=== PATIENT | female | born 1985 | race Caucasian/White ===

== ENCOUNTER 2017-10-03 21:45 | Emergency (ER) | payer OTHER ==
[2017-10-03 22:32] VITALS: BMI 31.3
[2017-10-03] MEDS ORDERED: Lactated Ringer's 1,000 ML IV SCH (23:00)
[2017-10-03 23:36] LABS: BASO % 0.2 % (0.0-2.0); EOS # 0.1 K/uL (0.0-0.7); HEMOGLOBIN 11.4 g/dL (12.0-16.0); LYMPH # 2.3 K/uL (1.0-4.3); LYMPH % 18.5 % (20.0-40.0); MEAN CELL VOLUME 88.2 fl (81.0-99.0); MEAN CORPUSCULAR HEMOGLOBIN 30.1 pg (27.0-31.0); MEAN CORPUSCULAR HGB CONC 34.1 g/dL (33.0-37.0); MONO # 0.7 K/uL (0.0-0.8); MONO % 5.7 % (0.0-10.0); NEUT # 9.2 K/uL (1.8-7.0); NEUT % 74.6 % (50.0-75.0); RBC 3.8 Mil/uL (3.80-5.20); WHITE BLOOD COUNT 12.4 K/uL (4.8-10.8)
[2017-10-04 00:20] LABS: SQUAMOUS EPITHIAL < 1 /hpf (0-5); URINE BILIRUBIN NEGATIVE (NEGATIVE); URINE BLOOD NEGATIVE (NEGATIVE); URINE CLARITY CLEAR (Clear); URINE COLOR STRAW (YELLOW); URINE GLUCOSE (UA) NEG (Normal); URINE LEUKOCYTE ESTERASE NEG Leu/uL (Negative); URINE PROTEIN NEGATIVE (NEGATIVE); URINE UROBILINOGEN 0.2-1.0 mg/dL (0.2-1.0)
--- NOTE | 2017-10-04 00:26 | OBHP ---
Datetime: 10/03/2017 23:18 IP Adm Impression: , intrauterine IP Admit Plan: Observation/Evaluation; Discharge home Admit Comment, IP Provider: Patient is a @ 31.5 wks with CHTN on Labetalol, presents with va ginal spotting on/off for past week and progressed tonight with clots. Otherwise no other antepartum issues, no medical problems, no surgeries, only medication takes is Labetalol. No fever, no abdominal pain, no dysuria, +FM, VE=closed, scant blood tinged mucous when valsalva, no pooling [id number] mod ren, +accels, no decels TOCO = lilian q 4-5 mins A/P 1. Patient found to have scant mucous discharge on vaginal exam, otherwise no active vaginal bleed ing. Started IVF, CBC showed hgb = 11 and WBC = 12. No evidence of chorio. not dilated, no evidence o f labor. 2. Bedside BPP = 8/8, MARY = 13 with cervix presenting about 4cm and no fluid noted collecting in t he cervix, placenta did not show any abnormalities, anterior presentation 3. Patient after observation did not show any additional bleeding. Patient had 1 L bolus of fluid, gave PO Labetalol, BP stable 130s/70s. No BLEDSOE, blurred vision, no RUQ pain. 4. Patient stable for discharge, will see pt 10/05 office Pelvic Type - PN: Adequate Extremities - PN: Normal Abdomen - PN: Normal Back - PN: Normal Breast - PN: Normal Lungs - PN: Normal Heart - PN: Normal Thyroid - PN: Normal Neurologic - PN: Normal HEENT - PN: Normal General - PN: Normal FHR - Baseline A Provider: 125 Contraction Comments Provider: q 4 mins EGA AdmitDate IP: 31.4 Vital Signs Provider: Reviewed; Within Normal Limits IP Chief Complaint: Vaginal bleeding NICHD Variability Prov Fetus A: Moderate 6-25bpm NICHD Accel Fetus A IP Provider: 15X15 NICHD Decel Fetus A IP Provider: None Dilatation, Provider: closed Effacement, Provider: thick Station, Provider: -3 Genitourinary Exam: Normal DTRs - PN: Normal
--- NOTE | 2017-10-04 00:28 | OBDCSUM ---
Datetime: 10/04/2017 00:25 Discharged to, Provider: Home Follow up at, Provider: Dr. lee Discharge Diagnosis, Provider: Antepartum Bleeding Discharge Time: 10/04/2017 00:25 Follow up in weeks, Provider: 10/05
--- NOTE | 2017-10-04 13:42 | US ---
Date of service: 10/03/2017 PROCEDURE: Biophysical profile HISTORY: bleeding COMPARISON: None available. TECHNIQUE: Standard protocol for this study/examination. FINDINGS: FINDINGS: Biophysical profile score 8/8 Based on the followin. breathing movements: 2/2 2. Gross body movement: 2/2 3. tone: 2/2 4. Qualitative amniotic fluid index: 2/2 Amniotic fluid index 13.7 cm. Cardiac activity: 128 beats per minute. Cephalic presentation. Anterior placenta. Closed cervix 4.5 cm. IMPRESSION: Biophysical profile score 8/8. Concordant findings (preliminary report) provided by [facility].
== END 2017-10-03 23:59 | disposition home or self-care (01) ==
LOC: H.EROB2 21:45
DX: O26.853 Spotting complicating pregnancy, third trimester (principal); Z3A.31 31 weeks gestation of pregnancy
CPT/HCPCS: 76818; 81003; 85025; 86850; 86900; 99284; J7120

== ENCOUNTER 2017-10-05 17:23 | Inpatient (IN) | payer OTHER ==
[2017-10-05 17:47] VITALS: BMI 31.4
--- NOTE | 2017-10-05 18:42 | OBHP ---
Datetime: 10/05/2017 18:29 IP Adm Impression: , intrauterine ; No Active Labor; Intact Membranes IP Admit Plan: Admit to unit Admit Comment, IP Provider: The patient is a intrauterine at 30+ weeks history of ch ronic hypertension on labetalol history of recurrent vaginal spotting. Patient presents to L_D compla ining of vaginal bleeding today patient was seen on 10/03/2017 with similar complaints. Patient denie s any uterine contractions leakage of fluid she reports good movement. Past medical history none Past surgical history knee surgery Medications labetalol 200 mg by mouth twice a day Social history denies alcohol tobacco use Review of systems patient denies headache chest pain shortness of breath palpitations nausea vomit ing diarrhea uterine contractions heat or cold intolerance easy bruisability musculoskeletal or neuro logical complaints review of system positive for vaginal spotting Physical exam see notes Vital signs stable afebrile Intrauterine at 31+ weeks persistent vaginal bleeding History of hypertension on labetalol MFM consultation obtained patient to be admitted for observation With placental abruption precautions Patient received steroids for lung maturity Monitor vaginal bleeding External monitor to monitor uterine activity Magnesium sulfate. The plan of care was discussed with patient and partner who agree to plan of care send for routine labs Pelvic Type - PN: Adequate Extremities - PN: Normal Abdomen - PN: Normal Back - PN: Normal Breast - PN: Not Done Lungs - PN: Normal Heart - PN: Normal Thyroid - PN: Normal Neurologic - PN: Normal HEENT - PN: Normal General - PN: Normal Presentation-Admit: Vertex FHR - Baseline A Provider: 150 Gestation - Est Wks by US: 31.0 Pool Provider: Negative EGA AdmitDate IP: 31.6 Vital Signs Provider: Reviewed IP Chief Complaint: Vaginal bleeding NICHD Variability Prov Fetus A: Moderate 6-25bpm NICHD Accel Fetus A IP Provider: 15X15 FHR Category Provider Fetus A: Category I NICHD Decel Fetus A IP Provider: None Dilatation, Provider: 0 Effacement, Provider: 0 Station, Provider: -2 Genitourinary Exam: Normal DTRs - PN: Normal
[2017-10-05] MEDS ORDERED: Magnesium Sul 40GM/1L SW 40 GM/1,000 ML ML IV ONE (18:43)
[2017-10-05] MEDS ORDERED: Magnesium Sulfate 4 gm/100 ml 4 GM/100 ML BAG IV ONE (18:43)
[2017-10-05] MEDS ORDERED: Betamethasone Soluspan 30 mg/5mL Inj Susp IM ONE (18:46)
[2017-10-05 19:30] LABS: BASO % 0.4 % (0.0-2.0); EOS # 0.1 K/uL (0.0-0.7); EOS % 0.7 % (0.0-4.0); HEMOGLOBIN 10.8 g/dL (12.0-16.0); LYMPH # 2.1 K/uL (1.0-4.3); LYMPH % 15.9 % (20.0-40.0); MEAN CELL VOLUME 88.3 fl (81.0-99.0); MEAN CORPUSCULAR HEMOGLOBIN 30.6 pg (27.0-31.0); MEAN CORPUSCULAR HGB CONC 34.7 g/dL (33.0-37.0); MEAN PLATELET VOLUME 8.8 fl (7.2-11.7); MONO # 0.7 K/uL (0.0-0.8); MONO % 5.4 % (0.0-10.0); NEUT % 77.6 % (50.0-75.0); PLATELET COUNT 216 K/uL (130-400); RBC 3.52 Mil/uL (3.80-5.20); WHITE BLOOD COUNT 12.9 K/uL (4.8-10.8)
[2017-10-05] MEDS: Lactated Ringer's 1,000 ML IV SCH (19:39)
[2017-10-05 19:51] LABS: BLOOD UREA NITROGEN 8 mg/dl (7-17); GFR AFRICAN-AMERICAN > 60; GFR NON-AFRICAN AMERICAN > 60; URIC ACID 4.4 mg/Dl (2.2-7.5)
[2017-10-05 19:52] LABS: ALB/GLOB RATIO 1.1 (1.0-2.1); ALBUMIN 3.5 g/dL (3.5-5.0); ALT/SGPT 30 U/L (9-52); AST/SGOT 28 U/L (14-36); CALCIUM 8.8 mg/dL (8.4-10.2)
[2017-10-05 23:32] LABS: SQUAMOUS EPITHIAL 1 /hpf (0-5); URINE BILIRUBIN NEGATIVE (NEGATIVE); URINE BLOOD NEGATIVE (NEGATIVE); URINE CLARITY CLEAR (Clear); URINE COLOR YELLOW (YELLOW); URINE GLUCOSE (UA) NEG (Normal); URINE LEUKOCYTE ESTERASE NEG Leu/uL (Negative); URINE PROTEIN NEGATIVE (NEGATIVE); URINE UROBILINOGEN 0.2-1.0 mg/dL (0.2-1.0)
[2017-10-06 07:01] VITALS: RESP 18; O2SAT 100
[2017-10-06] MEDS: Lactated Ringer's 1,000 ML IV SCH (08:00)
--- NOTE | 2017-10-06 08:22 | OBPN ---
Datetime: 10/06/2017 07:45 IP Progress Note Comment: OB hospitalist on-call Notifeid that she had BLEDSOE at 4am and given Tylenol. She had episode spotting this AM - nothing dif ferent form earlier this week. No CTX. A: /BLEDSOE chronic HTN vaginal spotting PLAN: cont present care MgSO4 1g/h; steroid dosing 7:30pm sign out FHR Category Provider Fetus A: Category I Datetime: 10/05/2017 18:29 Pool Provider: Negative FHR - Baseline A Provider: 150 Gestation - Est Wks by US: 31.0 Presentation-Admit: Vertex Vital Signs Provider: Reviewed NICHD Accel Fetus A IP Provider: 15X15 NICHD Variability Prov Fetus A: Moderate 6-25bpm Dilatation, Provider: 0 Effacement, Provider: 0 Station, Provider: -2 NICHD Decel Fetus A IP Provider: None Datetime: 10/03/2017 23:18 Contraction Comments Provider: q 4 mins
[2017-10-06] MEDS ORDERED: Betamethasone Soluspan 30 mg/5mL Inj Susp IM ONE (19:30)
[2017-10-07 04:41] VITALS: BP 130/70; PULSE 86; TEMP 98.7
== END 2017-10-06 21:00 | disposition home or self-care (01) | DRG 781 ==
LOC: H.EROB2 17:23 → H.L&D 18:40
PROVIDERS: ADMIT Obstetrics & Gynecology; ATTEND Obstetrics & Gynecology
PROC: 4A1HXCZ Monitoring of Products of Conception, Cardiac Rate, External Approach (ICD-10-PCS; principal; 2017-10-05)
DX: O16.3 Unspecified maternal hypertension, third trimester (principal); I10 Essential (primary) hypertension; Z3A.31 31 weeks gestation of pregnancy

== ENCOUNTER 2017-11-23 18:20 | Inpatient (IN) | payer OTHER ==
[2017-11-23 19:18] VITALS: BMI 33.0
[2017-11-23 19:54] LABS: BASO # 0.1 K/uL (0.0-0.2); BASO % 0.5 % (0.0-2.0); EOS # 0.1 K/uL (0.0-0.7); EOS % 0.7 % (0.0-4.0); HEMOGLOBIN 11.7 g/dL (12.0-16.0); LYMPH # 1.9 K/uL (1.0-4.3); LYMPH % 15.7 % (20.0-40.0); MEAN CELL VOLUME 86.9 fl (81.0-99.0); MEAN CORPUSCULAR HEMOGLOBIN 29.8 pg (27.0-31.0); MEAN CORPUSCULAR HGB CONC 34.3 g/dL (33.0-37.0); MEAN PLATELET VOLUME 9.7 fl (7.2-11.7); MONO # 0.7 K/uL (0.0-0.8); MONO % 5.6 % (0.0-10.0); NEUT # 9.5 K/uL (1.8-7.0); NEUT % 77.5 % (50.0-75.0); RBC 3.91 Mil/uL (3.80-5.20); RED CELL DISTRIBUTION WIDTH 13.2 % (11.5-14.5); WHITE BLOOD COUNT 12.3 K/uL (4.8-10.8)
[2017-11-24] MEDS: Lactated Ringer's 1,000 ML IV SCH ×3 (03:57→09:06)
[2017-11-24] MEDS ORDERED: Lactated Ringer's 1,000 ML IV SCH (04:30)
[2017-11-24] MEDS ORDERED: NS IV ONE (08:58)
[2017-11-24] MEDS ORDERED: OXYTOCIN IV ONE (08:58)
[2017-11-24] MEDS ORDERED: Oxytocin 30 UNIT 30 UNITS/500 ML BAG IV ONE ×3 (08:59→11:36)
[2017-11-24] MEDS ORDERED: ceFAZolin IV 2 gm in Dextrose 2 GM/50 ML BAG IVPB ONE (09:00)
[2017-11-24] MEDS ORDERED: Lactated Ringer's 1,000 ML IV ONE (09:20)
[2017-11-24] MEDS ORDERED: ceFAZolin 2 GM in Sodium Chloride 0.9% 100 ML IVPB ONE (09:20)
[2017-11-24] MEDS ORDERED: OXYTOCIN/0.9 % NS 20 UNIT/1,000 ML BAG IV SCH (09:30)
--- NOTE | 2017-11-24 09:40 | OBPN ---
Datetime: 11/24/2017 09:35 IP Progress Impression Other: Category I FHT IP Procedures: Sterile Vag Exam IP Progress Plan: Continue present management Contraction Comments Provider: q2-5min FHR - Baseline A Provider: 140s-150s IP Progress Note Comment: heart tracing previously with decelerations, currently category 1 fe dutch heart tracing with good baseline variability and no decelerations. Plan to continue observation a t this time. I discussed plan with patient and all patient questions answered. Vital Signs Provider: Reviewed; Within Normal Limits FHR Category Provider Fetus A: Category I NICHD Variability Prov Fetus A: Moderate 6-25bpm Dilatation, Provider: 1 Effacement, Provider: 25 Station, Provider: -1 NICHD Decel Fetus A IP Provider: None Datetime: 11/23/2017 18:30 Gestation - Est Wks by US: 38.3 Vital Signs Provider Details: BP 153/81 NICHD Accel Fetus A IP Provider: 15X15
--- NOTE | 2017-11-24 19:58 | OBPN ---
Datetime: 11/24/2017 19:53 IP Progress Impression Other: Category I FHT IP Procedures: Sterile Vag Exam IP Progress Plan: Continue present management; Induction Contraction Comments Provider: q3-4min FHR - Baseline A Provider: 130s IP Progress Note Comment: Start penicillin G for GBS prophylaxis. Continue Pitocin for augmentation. Discussed plan with patient and all patient questions answered. Category 1 heart tracing Vital Signs Provider: Reviewed; Within Normal Limits NICHD Accel Fetus A IP Provider: 15X15 FHR Category Provider Fetus A: Category I NICHD Variability Prov Fetus A: Moderate 6-25bpm Dilatation, Provider: 2-3 Effacement, Provider: 75 Station, Provider: -1 NICHD Decel Fetus A IP Provider: None
[2017-11-24] MEDS ORDERED: Penicillin G Potassium 5 MU in Sodium Chloride 0.9% 50 ML IVPB ONE (20:20)
[2017-11-24] MEDS ORDERED: Penicillin G 5 Million Unit Vial IVPB ONE (20:48)
--- NOTE | 2017-11-24 21:25 | OBPN ---
Datetime: 11/24/2017 21:22 IP Procedures: Sterile Vag Exam IP Progress Plan: Continue present management; Augmentation; Anesthesia consult Membranes, Provider: Intact FHR - Baseline A Provider: 140s IP Progress Note Comment: Pt requesting epidural. Contact anesthesia. FHT category I NICHD Variability Prov Fetus A: Moderate 6-25bpm Dilatation, Provider: 5 Effacement, Provider: 100 Station, Provider: 0 NICHD Decel Fetus A IP Provider: Early
[2017-11-24] MEDS ORDERED: Fentanyl/Bupivacaine HCl 250 ML EPI ONE (21:29)
--- NOTE | 2017-11-24 22:45 | OBPN ---
Datetime: 11/24/2017 22:41 IP Procedures: Artificial ROM; Sterile Vag Exam IP Progress Plan: Continue present management; Augmentation Membranes, Provider: Ruptured Amniotic Fluid Color, Provider: meconium FHR - Baseline A Provider: 130s-140s IP Progress Note Comment: AROM meconium fluid. heart tracing with variable decelerations with good baseline variability before and after decelerations. Continue current management. Discussed plan with patient all patient questions answered. NICHD Accel Fetus A IP Provider: 15X15 NICHD Variability Prov Fetus A: Moderate 6-25bpm Dilatation, Provider: 6 Effacement, Provider: 100 Station, Provider: 0 NICHD Decel Fetus A IP Provider: Variable
--- NOTE | 2017-11-25 00:22 | OBPN ---
Datetime: 11/25/2017 00:18 FHR - Baseline A Provider: 140s-150s IP Progress Note Comment: FHT with persistent and worsening variable decelerations. Minimal baselin e variability. Recommended C/S delivery to patient due to FHT. Discussed the R/B/A of surgery with patient and all patient questions answered. Anesthesia notified. Vital Signs Provider: Reviewed; Within Normal Limits NICHD Variability Prov Fetus A: Minimal - Undetectable to <5bpm Dilatation, Provider: 6 Effacement, Provider: 100 Station, Provider: 0 NICHD Decel Fetus A IP Provider: Variable; Prolonged
[2017-11-25] MEDS ORDERED: Lidocaine 2% MPF (5 ml) Inj ONE ×3 (00:28→00:32)
[2017-11-25] MEDS ORDERED: Lidocaine 2% PF (10 ml) Amp ONE (00:30)
[2017-11-25] MEDS ORDERED: Morphine 1 mg/ml preservative-free Inj(Duramorph) ONE (00:33)
[2017-11-25] MEDS ORDERED: Naloxone 0.4 mg/ml Inj (Adult) IVP PRN ×2 (01:09→04:41)
[2017-11-25] MEDS ORDERED: DiphenhydrAMINE 50 mg/ml Inj IVP PRN ×2 (01:09→04:41)
[2017-11-25] MEDS ORDERED: Oxycodone/Acetaminophen 5/325 mg Tab PO PRN ×2 (01:50)
[2017-11-25] MEDS ORDERED: OXYTOCIN/0.9 % NS 20 UNIT/1,000 ML BAG IV SCH (04:41)
[2017-11-25] MEDS: Multivitamin With Minerals Tab PO SCH (08:28)
[2017-11-25] MEDS: Oxycodone/Acetaminophen 5/325 mg Tab PO PRN ×3 (08:29→22:55)
[2017-11-25] MEDS ORDERED: Multivitamin With Minerals Tab PO SCH (09:00)
[2017-11-25 11:09] LABS: BASO % 0.3 % (0.0-2.0); HEMOGLOBIN 9.8 g/dL (12.0-16.0); LYMPH # 1.2 K/uL (1.0-4.3); LYMPH % 7.5 % (20.0-40.0); MEAN CELL VOLUME 89.3 fl (81.0-99.0); MEAN CORPUSCULAR HEMOGLOBIN 29.8 pg (27.0-31.0); MEAN CORPUSCULAR HGB CONC 33.3 g/dL (33.0-37.0); MEAN PLATELET VOLUME 9.5 fl (7.2-11.7); MONO # 0.8 K/uL (0.0-0.8); MONO % 5.4 % (0.0-10.0); NEUT # 13.4 K/uL (1.8-7.0); NEUT % 86.8 % (50.0-75.0); NRBC % 0.1 % (0.0-0.0); PLATELET COUNT 192 K/uL (130-400); RBC 3.29 Mil/uL (3.80-5.20); RED CELL DISTRIBUTION WIDTH 13.2 % (11.5-14.5); WHITE BLOOD COUNT 15.4 K/uL (4.8-10.8)
--- NOTE | 2017-11-25 11:28 | OBDS ---
DELIVERY PERSONNEL Delivery Doctor: Mariana Mejia MD Scrub Nurse: Rose Ling Director Biostatistics: Chaparrita Walters RN/ Carmina Anesthesiologist: Alesha Rodney MD Resident: Vignesh Bear MATERNAL INFORMATION Delivery Anesthesia: Epidural Medications in Delivery: Pitocin Estimated Blood Loss (ml): 800 Placenta Cultured: Yes Maternal Complications: None Provider Comments: Primary low flap transverse section via Pfannenstiel incision. Patient d elivered viable with Apgars of 8 and 9 at one and 5 minutes respectively. Normal uterus, demetra l tubes and ovaries bilaterally. Estimated blood loss 800 mL Fluids 1200 mL lactated Ringer's Urine output 300 mL of clear urine No complications LABOR SUMMARY EDC: 12/05/2017 00:00 No. Babies in Womb: 1 Attempted: No Labor Anesthesia: Epidural LABOR INFORMATION Reason for Induction: Chronic Hypertension Onset of Labor: 11/24/2017 22:35 Cervical Ripening Agents: Cervidil Oxytocin: Induction Group B Beta Strep: Positive Antibiotics # of Doses: 1 Antibiotics Time of Last Dose: 2100 Steroids Given: None Reason Steroids Not Administered: Not Applicable Other Reason Not Administered: N/A MEMBRANES Membranes Rupture Method: Artificial Rupture of Membranes: 11/24/2017 22:35 Length of Rupture (hrs): 2.35 Amniotic Fluid Color: Heavy Meconium Amniotic Fluid Amount: Large Amniotic Fluid Odor: None STAGES OF LABOR Stage 3 hrs: 0 Stage 3 min: 1 Total Time in Labor hrs: 2 Total Time in Labor min: 22 CSECTION DELIVERY Primary Indication: Nonreassuring Status CSection Urgency: Emergency CSection Incidence: Primary Labor: Labor Elective: Nonelective CSection Incision: Lower Uterine Transverse Uterine Closure: Double-layer closure BABY A INFORMATION Delivery Date/Time: 11/25/2017 00:56 Method of Delivery: Born in Route : No : N/A Forceps: N/A Vacuum Extraction: N/A Shoulder Dystocia : No SHOULDER DYSTOCIA BABY A Delivery Date/Time: 11/25/2017 00:56 PRESENTATION/POSITION BABY A Presentation: Cephalic Breech Presentation: N/A PLACENTA INFORMATION BABY A Placenta Delivery Time : 11/25/2017 00:57 Placenta Method of Delivery: Expressed Placenta Status: Delivered SCORES BABY A Heart Rate 1 min: >100 bpm Resp Effort 1 min: Good Cry Reflex Irritability 1 min: Cough or Sneeze or Pulls Away Muscle Tone 1 min: Active Motion Color 1 min: Body [place], Extremities Blue Resuscitation Effort 1 min: Tactile Stimulation SCORE 1 MIN: 9 Heart Rate 5 min: >100 bpm Resp Effort 5 min: Good Cry Reflex Irritability 5 min: Cough or Sneeze or Pulls Away Muscle Tone 5 min: Active Motion Color 5 min: Body [place], Extremities Blue Resuscitation Effort 5 min: N/A SCORE 5 MIN: 9 INFANT INFORMATION BABY A Gestational Age at Delivery: 38.4 Gestational Status: Term Outcome : Liveborn Infant Condition : Stable Infant Sex: Male IDENTIFICATION/MEDS BABY A ID Band Number: [id number] ID Band Location: Left Leg; Left Arm WEIGHT/LENGTH BABY A Infant Birthweight (gms): 3040 Weight (lb): 6 Infant Weight (oz): 11 Length Inches: 20.00 Length cms: 50.8 CORD INFORMATION BABY A No. Cord Vessels: 3 Nuchal Cord : N/A Nuchal Cord Other: 0 True Knot: 0 Cord pH Baby Arterial: 7.28 Cord Blood Taken: Yes Banking/Donate Info: N/A Infant Suction: Mouth; Nose ASSESSMENT BABY A Complications: Multiple Late Decels; Multiple Variable Decels; Meconium Physical Findings at Delivery: Within Normal Limits Respirations: Appears Normal Pneumatic Systems Operator/ALS Called : No Care By: Dr Laura/ Adán Uribe RN Transferred To: [facility]
[2017-11-25 11:32] LABS: BANDS 1 % (0-2); LYMPHOCYTE 7 % (20-50); METAMYELOCYTE 2 % (0-0); MONOCYTE 4 % (0-10); MYELOCYTE 1 % (0-0); NEUTROPHIL 85 % (42-75); PLATELET ESTIMATE NORMAL (NORMAL); TOTAL CELLS COUNTED 100
[2017-11-25 11:33] LABS: ANISOCYTOSIS SLIGHT
--- NOTE | 2017-11-25 11:35 | OBDS ---
DELIVERY PERSONNEL Delivery Doctor: Mariana Mejia MD Scrub Nurse: Rose Ling Watch Mechanic: Chaparrita Walters RN/ Carmina Anesthesiologist: Alesha Rodney MD Resident: Vignesh Bear MATERNAL INFORMATION Delivery Anesthesia: Epidural Medications in Delivery: Pitocin Estimated Blood Loss (ml): 800 Placenta Cultured: Yes Maternal Complications: None Provider Comments: Primary low flap transverse section via Pfannenstiel incision. Patient d elivered viable with Apgars of 8 and 9 at one and 5 minutes respectively. Normal uterus, demetra l tubes and ovaries bilaterally. Estimated blood loss 800 mL Fluids 1200 mL lactated Ringer's Urine output 300 mL of clear urine No complications LABOR SUMMARY EDC: 12/05/2017 00:00 EDC: 12/05/2017 00:00 No. Babies in Womb: 1 Attempted: No Labor Anesthesia: Epidural LABOR INFORMATION Reason for Induction: Chronic Hypertension Onset of Labor: 11/24/2017 22:35 Cervical Ripening Agents: Cervidil Oxytocin: Induction Group B Beta Strep: Positive Antibiotics # of Doses: 1 Antibiotics Time of Last Dose: 2100 Steroids Given: None Reason Steroids Not Administered: Not Applicable Other Reason Not Administered: N/A MEMBRANES Membranes Rupture Method: Artificial Membranes Rupture Method: Artificial Rupture of Membranes: 11/24/2017 22:35 Length of Rupture (hrs): 2.35 Amniotic Fluid Color: Heavy Meconium Amniotic Fluid Color: Heavy Meconium Amniotic Fluid Amount: Large Amniotic Fluid Amount: Large Amniotic Fluid Odor: None STAGES OF LABOR Stage 3 hrs: 0 Stage 3 min: 1 Total Time in Labor hrs: 2 Total Time in Labor min: 22 CSECTION DELIVERY Primary Indication: Nonreassuring Status CSection Urgency: Emergency CSection Incidence: Primary Labor: Labor Elective: Nonelective CSection Incision: Lower Uterine Transverse Uterine Closure: Double-layer closure BABY A INFORMATION Delivery Date/Time: 11/25/2017 00:56 Method of Delivery: Born in Route : No : N/A Forceps: N/A Vacuum Extraction: N/A Shoulder Dystocia : No SHOULDER DYSTOCIA BABY A Delivery Date/Time: 11/25/2017 00:56 PRESENTATION/POSITION BABY A Presentation: Cephalic Breech Presentation: N/A PLACENTA INFORMATION BABY A Placenta Delivery Time : 11/25/2017 00:57 Placenta Method of Delivery: Expressed Placenta Status: Delivered SCORES BABY A Heart Rate 1 min: >100 bpm Resp Effort 1 min: Good Cry Reflex Irritability 1 min: Cough or Sneeze or Pulls Away Muscle Tone 1 min: Active Motion Color 1 min: Body [place], Extremities Blue Resuscitation Effort 1 min: Tactile Stimulation SCORE 1 MIN: 9 Heart Rate 5 min: >100 bpm Resp Effort 5 min: Good Cry Reflex Irritability 5 min: Cough or Sneeze or Pulls Away Muscle Tone 5 min: Active Motion Color 5 min: Body [place], Extremities Blue Resuscitation Effort 5 min: N/A SCORE 5 MIN: 9 INFANT INFORMATION BABY A Gestational Age at Delivery: 38.4 Gestational Status: Term Infant Outcome : Liveborn Infant Condition : Stable Sex: Male IDENTIFICATION/MEDS BABY A ID Band Number: [id number] ID Band Location: Left Leg; Left Arm WEIGHT/LENGTH BABY A Birthweight (gms): 3040 Infant Weight (lb): 6 Weight (oz): 11 Length Inches: 20.00 Infant Length cms: 50.8 CORD INFORMATION BABY A No. Cord Vessels: 3 Nuchal Cord : N/A Nuchal Cord Other: 0 True Knot: 0 Infant Cord pH Baby Arterial: 7.28 Cord Blood Taken: Yes Banking/Donate Info: N/A Suction: Mouth; Nose ASSESSMENT BABY A Infant Complications: Multiple Late Decels; Multiple Variable Decels; Meconium Physical Findings at Delivery: Within Normal Limits Respirations: Appears Normal [place] Scraper/ALS Called : No Care By: Dr Laura/ Adán Uribe RN Transferred To: Nursery
--- NOTE | 2017-11-26 02:08 | OP ---
Copied To: Alex Mejia MD Attending MD: Alex Mejia MD PROCEDURE DATE: 11/25/2017 PREOPERATIVE DIAGNOSIS: Persistent and worsening variable decelerations, category II heart tracing. POSTOPERATIVE DIAGNOSIS: Persistent and worsening variable decelerations, category II heart tracing. OPERATION PERFORMED: Primary low flap transverse section via Pfannenstiel incision. SURGEON: Alex Mejia MD MANAGER INSIDE: Dr. Bear. ANESTHESIOLOGIST: Doug Rodney MD ANESTHESIA: Epidural. OPERATIVE FINDINGS: Viable infant with Apgars of 8 and 9 at 1 and 5 minutes respectively, normal uterus, normal tubes and ovaries bilaterally. ESTIMATED BLOOD LOSS: 800 mL. FLUIDS: 1200 mL of lactated Ringer's. URINE OUTPUT: 300 mL of clear urine at the end of procedure. COMPLICATIONS: No complications. DESCRIPTION OF PROCEDURE: The patient was taken to the operating room where epidural anesthesia was found to be adequate. The patient was prepped and draped in a normal sterile fashion in the dorsal supine position with leftward tilt. A Pfannenstiel skin incision was made with scalpel. This was carried down through to the underlying layer of fascia with a scalpel. A midline defect was made in the fascial layer with scalpel. The fascial incision was then extended bilaterally sharply with curved Chavez scissors. The fascial layer was from the underlying rectus muscles both bluntly and sharply with curved Chavez scissors. The rectus muscles were at the midline. The peritoneum was then identified, tented up with Katharine clamps x2, and entered sharply with Metzenbaum scissors. This peritoneal incision was then extended superiorly and inferiorly with good visualization of the urinary bladder. Bladder blade was inserted into the abdomen. The vesicouterine peritoneum was then identified, tented up with Katharine clamps x2, and entered sharply with Metzenbaum scissors. This peritoneal incision was then extended bilaterally with Metzenbaum scissors. The bladder flap was created digitally. The Sergei retractor was placed over the urinary bladder. The uterus was incised with a scalpel. The uterine incision was extended bilaterally bluntly. The 's head was delivered atraumatically. Nose and mouth were suctioned with bulb suction. The remainder of the was delivered without complication. The cord was clamped and cut. The was handed off to awaiting pediatricians. The placenta was removed manually. The uterus was cleared of all clots and debris. The uterine incision was repaired with 0 Vicryl in a running, locked fashion. The second layer with the same suture was used to imbricate the first and to obtain excellent hemostasis. Re-inspection of the uterine incision proved hemostasis. The abdomen and pelvis were irrigated with copious amounts of warm normal saline. The uterine incision was hemostatic. All instruments were removed from the patient. The peritoneal layer was closed with a running stitch of 2-0 chromic. The rectus muscles were reapproximated midline with a running stitch of 2-0 chromic. The fascial layer was closed with a running stitch of 0 Vicryl. Subcutaneous tissue was closed with a running stitch of 3-0 plain. The skin was closed with a subcutaneous stitch of 3-0 Vicryl. The patient tolerated the procedure well. All sponge, lap, and needle counts were correct x2. There were no complications. The patient was given 1 g of Ancef just prior to the beginning of the procedure. There were no complications. The patient was taken to the recovery room in awake and stable condition. Alex Mejia MD
[2017-11-26] MEDS: Oxycodone/Acetaminophen 5/325 mg Tab PO PRN ×3 (03:31→16:27)
[2017-11-26] MEDS: Multivitamin With Minerals Tab PO SCH (10:11)
[2017-11-27] MEDS: Oxycodone/Acetaminophen 5/325 mg Tab PO PRN ×4 (01:44→18:58)
[2017-11-27] MEDS: Multivitamin With Minerals Tab PO SCH (08:41)
--- NOTE | 2017-11-27 14:50 | OBPPN ---
Datetime: 11/27/2017 14:50 PP Pain Prov: Within normal limits PP Nausea Prov: Denies PP Flatus Prov: Yes PP Breasts Prov: Normal PP Heart Prov: Normal PP Lungs Prov: Normal PP Abdomen/Uterus Prov: Normal PP Lochia Prov: Normal PP Vulva/Perineum Prov: Normal PP CVA Tenderness Prov: Normal PP Extremities Prov: Normal Datetime: 11/26/2017 10:43 PP Comments Phys Exam Prov: Abd: Soft, NT ,BS- present Uterus- firm Incision: Clean and dry PP Impression Prov: Normal progression PP Plan Prov: Continue present management PP Progress Note Prov: s/p Delivery, POD #1 Clinically Stable. Plan: Continue care. Encourage ambulation. Vital Signs Provider PP: Reviewed
--- NOTE | 2017-11-27 14:53 | OBPPN ---
Datetime: 11/27/2017 14:50 PP Comments Phys Exam Prov: Abd: Soft, NT, BS- present Uterus- firm Incision: Clean and dry. PP Impression Prov: Normal progression PP Plan Prov: Continue present management PP Progress Note Prov: s/p Delivery, POD #2 Clinically Stable. Plan: Continue care Encourage ambulation.
[2017-11-28] MEDS: Oxycodone/Acetaminophen 5/325 mg Tab PO PRN
[2017-11-28] MEDS: Multivitamin With Minerals Tab PO SCH (08:39)
--- NOTE | 2017-11-28 11:50 | OBDCSUM ---
Datetime: 11/28/2017 11:42 Discharged to, Provider: Home Follow up at, Provider: Mitra Disch Instr Activity: Normal activity Disch Instr Diet: Regular Discharge Instructions, Provider: Routine instructions given Discharge Diagnosis, Provider: Term Delivered Discharge Time: 11/28/2017 11:49 Follow up in weeks, Provider: 1 week Disch Referrals: None Contraception discussed, Prov: Yes Disch Activity Restrictions: No exercising; No lifting; No sexual activity; Nothing in vagina - Inte rcourse, tampons, douche
--- NOTE | 2017-11-28 11:51 | OBPPN ---
Datetime: 11/28/2017 11:48 PP Pain Prov: Within normal limits PP Nausea Prov: Denies PP Flatus Prov: Yes PP Breasts Prov: Normal PP Heart Prov: Normal PP Lungs Prov: Normal PP Abdomen/Uterus Prov: Normal PP Lochia Prov: Normal PP Vulva/Perineum Prov: Normal PP CVA Tenderness Prov: Normal PP Extremities Prov: Normal PP Comments Phys Exam Prov: Fundus firm under umbilicus Incision clean/dry/intact PP Plan Prov: Discharge PP Progress Note Prov: Patient denies CP, no SOB, no N/V, tolerating PO diet, ambulating/voiding wel l, mild lochia,flatus A/P POD #3 1. discharge pt home 2. Discharge instructions reviewed Vital Signs Provider PP: Reviewed; Within Normal Limits
[2017-11-28 16:57] VITALS: BP 148/84; PULSE 72; RESP 20; TEMP 98.9; O2SAT 98
== END 2017-11-28 12:41 | disposition home or self-care (01) | DRG 766 ==
LOC: H.EROB2 18:20 → EDSTATUS 18:57 → H.L&D 19:19 → H.OB/GYN 11-25 04:25
PROVIDERS: ADMIT Obstetrics & Gynecology Gynecology; ATTEND Obstetrics & Gynecology Gynecology
PROC: 4A1HXCZ Monitoring of Products of Conception, Cardiac Rate, External Approach (ICD-10-PCS; 2017-11-23)
PROC: 10907ZC Drainage of Amniotic Fluid, Therapeutic from Products of Conception, Via Natural or Artificial Opening (ICD-10-PCS; 2017-11-24)
PROC: 10D00Z1 Extraction of Products of Conception, Low, Open Approach (ICD-10-PCS; principal; 2017-11-25)
DX: O13.4 Gestational [pregnancy-induced] hypertension without significant proteinuria, complicating childbirth (principal); O76 Abnormality in fetal heart rate and rhythm complicating labor and delivery; O77.0 Labor and delivery complicated by meconium in amniotic fluid; O99.820 Streptococcus B carrier state complicating pregnancy; Z37.0 Single live birth; Z3A.38 38 weeks gestation of pregnancy